=== PATIENT | male | born 1940 | race Caucasian/White ===

== ENCOUNTER 2017-02-05 11:17 | Inpatient (IN) | payer OTHER ==
[2017-02-05] VITALS (42 sets, daily range): BP systolic 51–115; BP diastolic 37–83
[~2017-02-05] VITALS: Ht 165.1 cm; Wt 81.1 kg
--- NOTE | ~2017-02-05 | EKG ---
[place] [address] [facility] [place] [address] ELECTROCARDIOGRAM REPORT Name: SCOTT BRAVO Room #: 242- ADM IN M.R.#: [id number] Admission: 02/05/17 Attend Phys: Harley Gonzalez DO Discharge: Date of : 36 Report #: [id number] THIS REPORT FOR: //name// [facility] Test Date: 2017-02-05 Test Time: 14:13:58 Pat Name: SCOTT BRAVO Department: Room: 242 P Gender: M Producer Director: Aura NAZARIO : 1940 Requested By: Harley Gonzalez Order Number: [id number] MD: Jerrell Rodas Measurements Intervals [place] Rate: 80 P: 0 GA: 180 QRS: 80 QRSD: 146 T: 100 QT: 498 QTc: 575 Interpretive Statements Sinus rhythm Atrial premature complex Incomplete Right bundle branch block Nonspecific lateral ST segment abnormality Compared to ECG 04/30/2010 08:11:23 Atrial premature complex(es) now present nonspecific change in the ST and T-wave segments Electronically Signed On 02-06-2017 8:30:03 CDT by Jerrell Rodas [email or web address] <ELECTRONICALLY SIGNED> By: Jerrell Rodas MD, [facility] 02/06/17 0830 1413 1413 Jerrell Rodas MD, [facility] /EPI
--- NOTE | ~2017-02-05 | 2DMMODE ---
[facility] [employer] [place] [address] 2 D/M-MODE ECHOCARDIOGRAM Name: SCOTT BRAVO Room #: 242-P [facility] IN ..#: [id number] Admission: 02/05/17 Attend Phys: Harley Gonzalez, Discharge: Date of : 36 Date of Service: 02/05/17 1612 Report #: [id number] THIS REPORT FOR: //name// APPROVED REPORT Study performed: 02/05/2017 14:24:15 EXAM: Comprehensive 2D, Doppler, and color-flow Echocardiogram Patient Location: ICU Room #: 242 Status: routine Other Information Study Quality: Adequate Indications Dyspnea HX COPD, MS, STENT 2D Dimensions RVDd: 44.65 mm LVEF(%): 31.43 (>50%) IVSd: 15.88 (7-11mm) LVOT Diam: 21.69 (18-24mm) LVDd: 43.87 mm PWd: 15.14 (7-11mm) Ascending Ao: 32.01 (22-36mm) LVDs: 37.42 (25-40mm) Aortic Root: 35.48 mm IVC: 2.50 mm De La Fuente's LVEF: 31.43 % Volumes Left Atrial Volume (Systole) Single Plane 4CH: 80.62 mL Single Plane 2CH: 56.53 mL LA ESV Index: 37.00 mL/m2 Aortic Valve AoV Peak Walter.: 1.26 m/s AO Peak Gr.: 7.42 mmHg LVOT Max P.20 mmHg LVOT Max V: 0.74 m/s SHEREEN Vmax: 2.18 cm2 Mitral Valve E/A Ratio: 0.8 MV Decel. Time: 236.52 ms MV E Max Walter.: 0.52 m/s MV A Walter.: 0.66 m/s MV PHT: 68.59 ms [facility] [employer] [place] [address] 2 D/M-MODE ECHOCARDIOGRAM Name: SCOTT BRAVO Room #: 242-P [facility] IN ..#: [id number] Admission: 02/05/17 Attend Phys: Harley Gonzalez, Discharge: Date of : 36 Date of Service: 02/05/17 1612 Report #: [id number] IVRT: 129.18 ms Pulmonary Valve PV Peak Walter.: 1.14 m/s PV Peak Gr.: 5.17 mmHg Pulmonary Vein P Vein S: 0.40 m/s P Vein A: 0.27 m/s P Vein D: 0.30 m/s P Vein A Dur.: 96.9 msec P Vein S/D Ratio: 1.33 Tricuspid Valve TR Peak Walter.: 2.74 m/s RAP Estimate: 10.00 mmHg TR Peak Gr.: 30.04 mmHg PA Pressure: 40.00 mmHg Left Ventricle The left ventricle is normal size. Moderate concentric left ventricular hypertrophy. Left ventricular systolic function is moderate to severely decreased. LVEF is 30-35%. Grade I - abnormal relaxation pattern. Right Ventricle Right ventricle is dilated. Right ventricle is mildly hypokinetic. Atria Left atrium is dilated. Right atrium is dilated. Aortic Valve The aortic valve is normal in structure. No aortic regurgitation is present. There is no aortic valvular stenosis. Mitral Valve The mitral valve is normal in structure. Trace mitral regurgitation. No evidence of mitral valve stenosis. Tricuspid Valve The tricuspid valve is normal in structure. There is trace tricuspid regurgitation. The right atrial pressure is estimated at 10 mmHg. There is mild pulmonary hypertension with an estimated PAP of 40 mmHg. Pulmonic Valve The pulmonary valve is normal in structure. Trace pulmonic regurgitation. [facility] [address] [place] [address] 2 D/M-MODE ECHOCARDIOGRAM Name: SCOTT BRAVO Room #: 242-P [facility] IN [facility]#: [id number] Admission: 02/05/17 Attend Phys: Harley Gonzalez, Discharge: Date of : 36 Date of Service: 02/05/17 1612 Report #: [id number] [place] The aortic root is normal in size. The ascending aorta is normal in size. IVC is dilated and collapses >50% with inspiration. Pericardium There is no pericardial effusion. <Conclusion> The left ventricle is normal size. Moderate concentric left ventricular hypertrophy. LVEF is 30-35%. Right ventricle is dilated. Right ventricle is mildly hypokinetic. Left atrium is dilated. Right atrium is dilated. The aortic valve is normal in structure. No aortic regurgitation is present. The mitral valve is normal in structure. Trace mitral regurgitation. The tricuspid valve is normal in structure. There is trace tricuspid regurgitation. The right atrial pressure is estimated at 10 mmHg. There is mild pulmonary hypertension with an estimated PAP of 40 mmHg. <ELECTRONICALLY SIGNED> By: Qasim Gupta MD 02/05/17 1612 161 161 Qasim Gupta MD /INF
--- NOTE | ~2017-02-05 | EKG ---
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: Aura NAZARIO : 1940 Requested By: Juan Saeed Order Number: [id number] MD: Jerrell Rodas Measurements Intervals [place] Rate: 69 P: 267 [place]: 261 QRS: 70 QRSD: 147 T: 142 QT: 524 QTc: 562 Interpretive Statements Sinus rhythm Prolonged [place] interval Right bundle branch block Abnrm T, consider ischemia, anterolateral lds Prolonged QT interval Compared to ECG 04/30/2010 08:11:23 No significant change was found Electronically Signed On 02-06-2017 9:07:34 CDT by Jerrell Rodas [email or web address] <ELECTRONICALLY SIGNED> By: Jerrell Rodas MD, [facility] 02/06/17 0907 [phone] Jerrell Rodas MD, [facility] /EPI
--- NOTE | ~2017-02-05 | HC ---
[facility] [place] [address] CONSULTATION Name: SCOTT BRAVO Room #: 242-P ADM IN M.R.#: [id number] Admission: 02/05/17 Attend Phys: Harley Gonzalez DO Discharge: Date of : 36 Report #: [id number] THIS REPORT FOR: //name// CC: Harley Hernandez REASON FOR CONSULTATION: I was asked to evaluate concerning pneumonia and sepsis. HISTORY OF PRESENT ILLNESS: The patient is a 76-year-old with known ischemic cardiomyopathy and COPD who was transferred from [facility] after several day history of malaise, cough, and shortness of breath. The patient was very hard of hearing and was not a good historian. He did not think he was running fever, did have some mild pharyngitis symptoms, could not get a good history of reflux symptoms, he has had purulent sputum production. No chest pain. He developed respiratory failure and was placed on BiPAP. His troponin was elevated at 7 with a BNP of 15-45,000. His chest x-ray showed new right lower lobe pulmonary infiltrate. He was transferred to [facility] emergency room and now in the intensive care unit. He is on 3 liters of oxygen per nasal cannula, which is his baseline. Now on BiPAP. He has received 6 liters of fluid and low dose Levophed. [place], attending [place]. No other travel noted. No tuberculosis history identified. Did not know his vaccination status. PAST MEDICAL HISTORY: Coronary artery disease, ischemic cardiomyopathy, venous stasis disease, lower extremity psoriasis, hyperlipidemia, hypertension, COPD, small aortic aneurysm, and past smoker. FAMILY HISTORY: Noncontributory. SOCIAL HISTORY: Lives alone. No documented HIV risk factors. ALLERGIES: PENICILLIN and SULFA. MEDICATIONS: As noted on his MAR, including Levaquin and Solu-Medrol. He is on low dose Levophed. REVIEW OF SYSTEMS: No headache, rash, nausea, vomiting, diarrhea, dysuria, or frequency. PHYSICAL EXAMINATION: VITAL SIGNS: Afebrile, blood pressure 109/62, pulse 63, CVP 10. GENERAL: He was alert, very hard of hearing. He had loose productive cough. He had diffuse wheezing bilaterally. No significant peripheral edema. SKIN: Unremarkable. HEENT: Purulent sputum noted in the back of his throat and soft palate. No ulcerations. Dentition in reasonable repair. [address] [address] CONSULTATION Name: SCOTT BRAVO Room #: 242-P [facility] IN .R.#: [id number] Admission: 02/05/17 Attend Phys: Harley Gonzalez DO Discharge: Date of : 36 Report #: [id number] NECK: Supple, no adenopathy. LUNGS: Crackles in the right base posteriorly with scattered wheezes, mostly anterior. HEART: Regular without murmur. ABDOMEN: Soft, protuberant, nontender. No hepatosplenomegaly or mass. EXTREMITIES: Unremarkable. NEUROLOGIC: Nonfocal. LABORATORY STUDIES: Chest x-ray, bilateral infiltrates, fibrosis with new right lower lobe and some left lower lobe atelectasis and pneumonia changes. Echocardiogram, EF of 30-35%. Hemoglobin 13, WBC 8.9, 90% segs, 3% bands, platelet count 161,000. Sodium 138, potassium 3.5, bicarbonate 24, creatinine 1.5. AST 331. Lactate 1.2. MRSA screen negative. BNP 45,000. Troponin 7.15. Urinalysis, few rbc's. Blood, urine and sputum cultures are pending. IMPRESSION: A 76-year-old with underlying ischemic cardiomyopathy, chronic obstructive pulmonary disease with community-acquired pneumonia and cardiac ischemia. He received a large volume of fluid to support his blood pressure. Combination of septic shock and cardiogenic shock would be considered. We would recommend continuing antibiotic coverage for community-acquired pneumonia and continue cardiac evaluation. We will wean vasopressors as tolerated. Adjust antibiotics following culture results. Check urine antigen. <ELECTRONICALLY SIGNED> By: Juan Moreno MD 02/06/17 1205 [id number] [id number] Juan Moreno MD /nt
[~2017-02-05 11:17] MED LIST: ASPIRIN325 PO; BYSTOLIC10 MG PO; CIPROFLOXACIN500 M3 PO; NEXIUM40 MG PO; NITROQUICK0.4 MG SL; QUINU5 PD PO; SIMVASTATIN80 MG PO
[2017-02-05 13:22] LABS: ABG SAMPLE TYPE ARTERIAL; BE(vivo) 0.2 mmol/L (-2 to +3); HCO3 23.9 mmol/L (22.0-26.0); O2(CT) 19.4 mL/dL (15.0-23.0); O2Hb 89.3 % (92.0-98.0); PCO2 36.3 mmHg (35.0-45.0); PO2 60.2 mmHg (80.0-100.0); pH 7.437 (7.360-7.450); tCO2 25.1 mmol/L (24.0-30.0)
[2017-02-05 13:23] LABS: STICK SITE R.RADIAL
[2017-02-05 14:41] LABS: HEMOGLOBIN 13.9 gm/dL (14.0-18.0); MCH 25.5 pg (26.0-34.0); MCHC 32.3 g/dL (28.0-37.0); PLATELET COUNT 192 thou/uL (150-400); RBC 5.44 mil/uL (4.50-6.00); RDW 16.5 % (10.5-14.5); WBC 10.4 thou/uL (4.0-11.0)
[2017-02-05 14:42] LABS: MANUAL DIFF YES
[2017-02-05 14:57] LABS: POTASSIUM 3.5 mmol/L (3.5-5.1)
[2017-02-05 15:00] LABS: APTT 33.3 Seconds (24.5-32.8); INR 1.2; PROTIME 12.5 Seconds (9.3-11.4)
[2017-02-05 15:03] LABS: URINE BILIRUBIN 1+ (Negative); URINE BLOOD 3+ (Negative); URINE COLOR YELLOW; URINE GLUCOSE-RANDOM* NEGATIVE (Negative); URINE KETONES NEGATIVE (Negative); URINE NITRITE NEGATIVE (Negative); URINE PROTEIN (DIPSTICK) 2+ (Negative); URINE SPECIFIC GRAVITY 1.025 (1.003-1.035)
[2017-02-05 15:05] LABS: ICTOTEST (BILI CONFIRMATORY) Negative (Negative)
[2017-02-05 15:06] LABS: FIBRINOGEN 468.3 mg/dL (210-360)
[2017-02-05 15:07] LABS: ALBUMIN 2.7 g/dL (3.4-5.0); TOTAL BILIRUBIN 0.7 mg/dL (<0.1-1.0); TOTAL PROTEIN 6.1 g/dL (6.4-8.2)
[2017-02-05 15:12] LABS: BURR CELLS FEW; LARGE PLATELETS FEW; POLYCHROMASIA SLIGHT; TOTAL CELL COUNT 100
[2017-02-05 15:14] LABS: HYALINE CASTS 0-3 Few /LPF (None Seen); SQUAMOUS 0-3 Few /LPF (0-3); URINE WBC 0-5 Rare /HPF (0-5)
[2017-02-05 15:15] LABS: BACTERIA 1-9 Few /HPF (None Seen); CRYSTALS None Seen /LPF (None Seen)
[2017-02-05 16:59] LABS: ABG SAMPLE TYPE VENOUS; BE(vivo) -2.1 mmol/L (-2 to +3); O2(CT) 13.1 mL/dL (15.0-23.0); O2Hb VENOUS 66.3 (65.0-85.0); PCO2 VENOUS 40.6 mmHg (41.0-51.0); PO2 VENOUS 38.8 mmHg (35.0-45.0); STICK SITE LINE; sO2 VENOUS 71.9 % (65.0-85.0); tCO2 24.2 mmol/L (24.0-30.0)
[2017-02-05 17:00] LABS: Pressure Support 14 cm H20
[2017-02-05 18:17] LABS: ABG SAMPLE TYPE VENOUS; BE(vivo) -2.3 mmol/L (-2 to +3); HCO3 23.2 mmol/L (22.0-26.0); LACTATE 1.61 mmol/L (0.5-2.0); O2(CT) 13.8 mL/dL (15.0-23.0); PCO2 VENOUS 42.5 mmHg (41.0-51.0); PO2 VENOUS 40.2 mmHg (35.0-45.0); sO2 VENOUS 72.9 % (65.0-85.0); tCO2 24.5 mmol/L (24.0-30.0)
[2017-02-05 18:18] LABS: Pressure Support 14 cm H20; STICK SITE LINE
[2017-02-05 18:45] LABS: CALCIUM 7.4 mg/dL (8.5-10.1); CREATININE 1.5 mg/dL (0.7-1.3); POTASSIUM 3.3 mmol/L (3.5-5.1)
[2017-02-05 19:51] LABS: ABG SAMPLE TYPE VENOUS; BE(vivo) -13.6 mmol/L (-2 to +3); LACTATE 0.65 mmol/L (0.5-2.0); O2Hb VENOUS 77.7 (65.0-85.0); PCO2 VENOUS 21.1 mmHg (41.0-51.0); PO2 VENOUS 49.9 mmHg (35.0-45.0); STICK SITE LINE; sO2 VENOUS 84.2 % (65.0-85.0); tCO2 11.6 mmol/L (24.0-30.0)
[2017-02-05 19:52] LABS: Pressure Support 14 cm H20
[2017-02-06] VITALS (46 sets, daily range): BP systolic 81–125; BP diastolic 46–89
[2017-02-06 05:49] LABS: HEMATOCRIT 41.3 % (42.0-52.0); HEMOGLOBIN 13.2 gm/dL (14.0-18.0); MCH 25.2 pg (26.0-34.0); MCV 78.8 fL (80.0-100.0); PLATELET COUNT 161 thou/uL (150-400); RBC 5.24 mil/uL (4.50-6.00); RDW 16.5 % (10.5-14.5); WBC 8.9 thou/uL (4.0-11.0)
[2017-02-06 05:52] LABS: MANUAL DIFF YES
[2017-02-06 06:06] LABS: CALCIUM 7.7 mg/dL (8.5-10.1); CREATININE 1.5 mg/dL (0.7-1.3); POTASSIUM 3.5 mmol/L (3.5-5.1)
[2017-02-06 06:22] LABS: TROPONIN-I 2.16 ng/mL (<0.04-0.07)
[2017-02-06 07:46] LABS: ABSOLUTE NEUTROPHILS 8.3 thou/uL (1.4-8.2); TOTAL CELL COUNT 100
[2017-02-06 07:47] LABS: ANISOCYTOSIS 1+
[2017-02-06 17:09] LABS: HIV ANTIBODY Non Reactive (Non Reactive)
[2017-02-06] MEDS ORDERED: LASIX 40 MG TAB40 M2 PO (18:38)
[2017-02-06] MEDS ORDERED: FLUOCINONI0.05 %/65 TOP (19:01)
[2017-02-06] MEDS ORDERED: BACTROBAN CREAM30 G1 TOP (19:02)
[2017-02-07 00:34] VITALS: BP 132/64
[2017-02-07 04:00] VITALS: BP 146/81
[2017-02-07 05:38] LABS: HEMATOCRIT 41.1 % (42.0-52.0); HEMOGLOBIN 13.5 gm/dL (14.0-18.0); MCH 25.4 pg (26.0-34.0); MCHC 32.9 g/dL (28.0-37.0); MCV 77.2 fL (80.0-100.0); PLATELET COUNT 179 thou/uL (150-400); RBC 5.33 mil/uL (4.50-6.00); RDW 16.7 % (10.5-14.5); WBC 15.5 thou/uL (4.0-11.0)
[2017-02-07 05:46] LABS: MANUAL DIFF YES
[2017-02-07 05:53] LABS: ALBUMIN 2.4 g/dL (3.4-5.0); CALCIUM 8.3 mg/dL (8.5-10.1); CREATININE 1.3 mg/dL (0.7-1.3); POTASSIUM 3.7 mmol/L (3.5-5.1); TOTAL BILIRUBIN 0.4 mg/dL (<0.1-1.0); TOTAL PROTEIN 5.9 g/dL (6.4-8.2)
[2017-02-07 07:15] VITALS: BP 136/83
[2017-02-07 07:54] LABS: ABSOLUTE NEUTROPHILS 14.7 thou/uL (1.4-8.2); ANISOCYTOSIS SLIGHT; MYELOCYTES 1 %; NUCLEATED RBCS 1 /100WBC; POIKILOCYTOSIS SLIGHT; TOTAL CELL COUNT 100
[2017-02-07 11:00] VITALS: BP 127/62
[2017-02-07 16:00] VITALS: BP 129/73
[2017-02-07 19:36] VITALS: BP 123/76
[2017-02-08 03:56] VITALS: BP 132/81
[2017-02-08 04:12] LABS: HEMATOCRIT 43.1 % (42.0-52.0); HEMOGLOBIN 13.7 gm/dL (14.0-18.0); MCH 25.2 pg (26.0-34.0); MCHC 31.8 g/dL (28.0-37.0); MCV 79.2 fL (80.0-100.0); PLATELET COUNT 194 thou/uL (150-400); RBC 5.44 mil/uL (4.50-6.00); WBC 14.6 thou/uL (4.0-11.0)
[2017-02-08 04:30] LABS: MANUAL DIFF YES
[2017-02-08 04:37] LABS: CALCIUM 8.4 mg/dL (8.5-10.1); CREATININE 1.2 mg/dL (0.7-1.3); POTASSIUM 3.5 mmol/L (3.5-5.1)
[2017-02-08 05:42] LABS: ABSOLUTE NEUTROPHILS 12.8 thou/uL (1.4-8.2); ANISOCYTOSIS 1+; METAMYELOCYTES 2 %; PROMYELOCYTES 1 %; TOTAL CELL COUNT 100
[2017-02-08 05:43] LABS: LARGE PLATELETS OCCASIONAL
[2017-02-08 07:20] VITALS: BP 143/83
[2017-02-08 13:15] VITALS: BP 137/86
[2017-02-08 16:30] VITALS: BP 141/83
[2017-02-08 16:59] LABS: APTT 27.8 Seconds (24.5-32.8); INR 1.1
[2017-02-08 20:24] VITALS: BP 151/65
[2017-02-09] VITALS (29 sets, daily range): BP systolic 120–157; BP diastolic 67–129
[2017-02-09 00:39] LABS: ABG SAMPLE TYPE ARTERIAL; BE(vivo) 5.1 mmol/L (-2 to +3); HCO3 29.6 mmol/L (22.0-26.0); O2(CT) 19.1 mL/dL (15.0-23.0); O2Hb 90.6 % (92.0-98.0); PCO2 42.7 mmHg (35.0-45.0); PO2 62.9 mmHg (80.0-100.0); STICK SITE L.RADIAL; pH 7.458 (7.360-7.450); sO2 93.1 % (92.0-98.0); tCO2 30.9 mmol/L (24.0-30.0)
[2017-02-09 01:52] LABS: HEMOGLOBIN 13.8 gm/dL (14.0-18.0); MCH 25.6 pg (26.0-34.0); MCHC 32.9 g/dL (28.0-37.0); MCV 77.8 fL (80.0-100.0); PLATELET COUNT 219 thou/uL (150-400); RDW 16.5 % (10.5-14.5); WBC 17.9 thou/uL (4.0-11.0)
[2017-02-09 02:20] LABS: ALBUMIN 2.6 g/dL (3.4-5.0); CALCIUM 8.4 mg/dL (8.5-10.1); CREATININE 1.1 mg/dL (0.7-1.3); TOTAL BILIRUBIN 0.5 mg/dL (<0.1-1.0); TOTAL PROTEIN 5.7 g/dL (6.4-8.2)
[2017-02-09 02:22] LABS: MANUAL DIFF YES
[2017-02-09 02:44] LABS: ABSOLUTE NEUTROPHILS 17.4 thou/uL (1.4-8.2); ANISOCYTOSIS 1+; TOTAL CELL COUNT 100
[2017-02-09 21:07] LABS: INFLUENZA B Negative (Negative); METAPNEUMOVIRUS Negative (Negative)
[2017-02-10] VITALS (15 sets, daily range): BP systolic 103–154; BP diastolic 68–106
[2017-02-10 05:46] LABS: HEMATOCRIT 45.3 % (42.0-52.0); HEMOGLOBIN 14.8 gm/dL (14.0-18.0); MCH 25.5 pg (26.0-34.0); MCHC 32.7 g/dL (28.0-37.0); PLATELET COUNT 275 thou/uL (150-400); RDW 16.7 % (10.5-14.5); WBC 25.4 thou/uL (4.0-11.0)
[2017-02-10 06:06] LABS: ALBUMIN 2.8 g/dL (3.4-5.0); CALCIUM 8.5 mg/dL (8.5-10.1); POTASSIUM 4.6 mmol/L (3.5-5.1); TOTAL BILIRUBIN 0.7 mg/dL (<0.1-1.0); TOTAL PROTEIN 6.3 g/dL (6.4-8.2)
[2017-02-10 06:12] LABS: MANUAL DIFF YES
[2017-02-10 07:00] LABS: METAMYELOCYTES 3 %; MYELOCYTES 1 %; TOTAL CELL COUNT 100
[2017-02-10 07:01] LABS: ANISOCYTOSIS 1+; POLYCHROMASIA OCCASIONAL
[2017-02-10 07:02] LABS: ABSOLUTE NEUTROPHILS 23.1 thou/uL (1.4-8.2)
[2017-02-11] VITALS (21 sets, daily range): BP systolic 109–157; BP diastolic 69–139
[2017-02-11 04:59] LABS: ABG SAMPLE TYPE ARTERIAL; BE(vivo) 8.8 mmol/L (-2 to +3); HCO3 34.5 mmol/L (22.0-26.0); LACTATE 1.61 mmol/L (0.5-2.0); O2Hb 94.4 % (92.0-98.0); PO2 83.9 mmHg (80.0-100.0); STICK SITE R.RADIAL; pH 7.448 (7.360-7.450); sO2 96.5 % (92.0-98.0); tCO2 36.1 mmol/L (24.0-30.0)
[2017-02-11 05:00] LABS: ABG COMMENT BIPAP 12/ 6; Pressure Support 6 cm H20
[2017-02-11 05:33] LABS: PLATELET COUNT 220 thou/uL (150-400)
[2017-02-11 05:37] LABS: HEMATOCRIT 44.6 % (42.0-52.0); HEMOGLOBIN 14.5 gm/dL (14.0-18.0); MCH 25.4 pg (26.0-34.0); MCHC 32.4 g/dL (28.0-37.0); MCV 78.5 fL (80.0-100.0); RBC 5.69 mil/uL (4.50-6.00); WBC 15.4 thou/uL (4.0-11.0)
[2017-02-11 05:42] LABS: MANUAL DIFF YES
[2017-02-11 05:45] LABS: CALCIUM 8.4 mg/dL (8.5-10.1); POTASSIUM 4.1 mmol/L (3.5-5.1)
[2017-02-11 09:27] LABS: ABSOLUTE NEUTROPHILS 14.2 thou/uL (1.4-8.2); ANISOCYTOSIS 1+; PLATELET ESTIMATE NORMAL; POLYCHROMASIA SLIGHT; TOTAL CELL COUNT 100
[2017-02-12] VITALS (12 sets, daily range): BP systolic 110–154; BP diastolic 38–122
[2017-02-12 06:05] LABS: CALCIUM 8.8 mg/dL (8.5-10.1); CREATININE 0.9 mg/dL (0.7-1.3); HEMOGLOBIN 15.2 gm/dL (14.0-18.0); POTASSIUM 4.4 mmol/L (3.5-5.1)
[2017-02-12 06:06] LABS: HEMATOCRIT 47.5 % (42.0-52.0); MCH 25.3 pg (26.0-34.0); MCHC 32.1 g/dL (28.0-37.0); PLATELET COUNT 216 thou/uL (150-400); RBC 6.01 mil/uL (4.50-6.00); RDW 16.6 % (10.5-14.5); WBC 19.3 thou/uL (4.0-11.0)
[2017-02-12 06:31] LABS: MANUAL DIFF YES
[2017-02-12 07:13] LABS: ABG SAMPLE TYPE ARTERIAL; BE(vivo) 6.3 mmol/L (-2 to +3); HCO3 30.2 mmol/L (22.0-26.0); LACTATE 1.54 mmol/L (0.5-2.0); O2(CT) 20.4 mL/dL (15.0-23.0); PCO2 40.4 mmHg (35.0-45.0); PO2 56.4 mmHg (80.0-100.0); pH 7.491 (7.360-7.450); sO2 91.5 % (92.0-98.0); tCO2 31.4 mmol/L (24.0-30.0)
[2017-02-12 07:14] LABS: STICK SITE L.RADIAL
[2017-02-12 08:38] LABS: ABSOLUTE NEUTROPHILS 17.8 thou/uL (1.4-8.2); METAMYELOCYTES 2 %; TOTAL CELL COUNT 100
[2017-02-12 08:39] LABS: ANISOCYTOSIS 1+
[2017-02-12 11:36] LABS: MAGNESIUM 2.5 mg/dL (1.8-2.4)
[2017-02-13] VITALS (23 sets, daily range): BP systolic 81–268; BP diastolic 46–233
[2017-02-13 04:57] LABS: APTT 71.3 Seconds (24.5-32.8); HEMATOCRIT 48.7 % (42.0-52.0); HEMOGLOBIN 15.7 gm/dL (14.0-18.0); INR 1.1; MCH 25.7 pg (26.0-34.0); MCHC 32.3 g/dL (28.0-37.0); MCV 79.7 fL (80.0-100.0); PROTIME 11.4 Seconds (9.3-11.4); RBC 6.11 mil/uL (4.50-6.00); RDW 16.6 % (10.5-14.5)
[2017-02-13 04:58] LABS: CALCIUM 8.7 mg/dL (8.5-10.1); CREATININE 1.1 mg/dL (0.7-1.3); POTASSIUM 4.8 mmol/L (3.5-5.1)
[2017-02-14 05:11] VITALS: BP 144/96
[2017-02-14 06:27] LABS: HEMATOCRIT 45.8 % (42.0-52.0); HEMOGLOBIN 14.7 gm/dL (14.0-18.0); MCH 25.5 pg (26.0-34.0); MCHC 32.1 g/dL (28.0-37.0); MCV 79.3 fL (80.0-100.0); RBC 5.77 mil/uL (4.50-6.00); RDW 16.4 % (10.5-14.5); WBC 22.9 thou/uL (4.0-11.0)
[2017-02-14 06:42] LABS: CALCIUM 8.7 mg/dL (8.5-10.1); CREATININE 1.4 mg/dL (0.7-1.3); POTASSIUM 4.4 mmol/L (3.5-5.1)
[2017-02-14 07:43] VITALS: BP 157/117
[2017-02-14 12:02] VITALS: BP 90/55
[2017-02-14 15:41] LABS: HEMATOCRIT 45.4 % (42.0-52.0); HEMOGLOBIN 14.3 gm/dL (14.0-18.0)
== END 2017-02-14 16:14 | DRG 871 ==
LOC: 2N 11:17 → ICU 13:13 → 2N 02-07 00:05 → ICU 02-09 01:59 → 2N 02-13 14:47
PROVIDERS: Family Medicine; Internal Medicine; Internal Medicine Cardiovascular Disease; Internal Medicine Geriatric Medicine; Internal Medicine Pulmonary Disease; Nurse Practitioner Family; Specialist
PROC: 02HV33Z Insertion of Infusion Device into Superior Vena Cava, Percutaneous Approach (ICD-10-PCS; 2017-02-05)
PROC: 5A09457 Assistance with Respiratory Ventilation, 24-96 Consecutive Hours, Continuous Positive Airway Pressure (ICD-10-PCS; principal; 2017-02-06)
DX: A41.9 Sepsis, unspecified organism (principal); J96.01 Acute respiratory failure with hypoxia; I21.4 Non-ST elevation (NSTEMI) myocardial infarction; J18.9 Pneumonia, unspecified organism; R65.21 Severe sepsis with septic shock; I26.99 Other pulmonary embolism without acute cor pulmonale; I50.23 Acute on chronic systolic (congestive) heart failure; G92 Toxic encephalopathy; J44.1 Chronic obstructive pulmonary disease with (acute) exacerbation; J44.0 Chronic obstructive pulmonary disease with (acute) lower respiratory infection; N17.9 Acute kidney failure, unspecified; E87.0 Hyperosmolality and hypernatremia; I25.5 Ischemic cardiomyopathy; I25.10 Atherosclerotic heart disease of native coronary artery without angina pectoris; E78.5 Hyperlipidemia, unspecified; Z60.2 Problems related to living alone; I87.2 Venous insufficiency (chronic) (peripheral); I11.0 Hypertensive heart disease with heart failure; I25.9 Chronic ischemic heart disease, unspecified; L40.9 Psoriasis, unspecified; I95.9 Hypotension, unspecified; E78.00 Pure hypercholesterolemia, unspecified; I87.8 Other specified disorders of veins; I27.2 Other secondary pulmonary hypertension; R41.0 Disorientation, unspecified; R14.0 Abdominal distension (gaseous); R59.0 Localized enlarged lymph nodes; Z87.891 Personal history of nicotine dependence; Z88.0 Allergy status to penicillin; Z88.2 Allergy status to sulfonamides; Z98.62 Peripheral vascular angioplasty status; Z79.82 Long term (current) use of aspirin; Z79.899 Other long term (current) drug therapy; Z79.01 Long term (current) use of anticoagulants
CPT/HCPCS: 10078; 10081; 27000